=== PATIENT | female | born 1990 | race Caucasian/White ===

== ENCOUNTER 2020-10-26 01:46 | Emergency (ER) | payer SELFPAY ==
[~2020-10-26] VITALS: Ht 165.1 cm; Wt 45.4 kg
--- NOTE | 2020-10-26 02:55 | NUR ---
MD Hernandes in room to do MSE.
[2020-10-26] MEDS ORDERED: HYDROMORPHONE 1 MG/1 ML DISP.SYRIN IM ONE (03:00)
[2020-10-26] MEDS ORDERED: HYDROMORPHONE 1 MG/1 ML DISP.SYRIN ONE (03:08)
--- NOTE | 2020-10-26 03:15 | NUR ---
Patient's right hand secured with colles splint and ovidio bandage per MD Hernandes verbal order.
[2020-10-26] MEDS ORDERED: OXYC-128 PO (03:27)
[2020-10-26] MEDS: LORAZEPAM 2 MG/1 ML VIAL IM ONE ×2 (03:30→03:44)
[2020-10-26] MEDS ORDERED: LORAZEPAM 2 MG/1 ML VIAL ONE (03:47)
[2020-10-26] MEDS ORDERED: OXYCODONE/APAP 5-325 MG TABLET PO ONE (04:45)
[2020-10-26 04:51] VITALS: BP 132/90
[2020-10-26] MEDS ORDERED: OXYCODONE/APAP 5-325 MG TABLET ONE (04:51)
--- NOTE | 2020-10-26 04:52 | NUR ---
Patient discharged to home in stable condition. Written and verbal after care instructions given. Patient verbalizes understanding of instructions. Stressed follow up or return to ER for worsening s/s. Patient ambulates with steady gait, V/S stable, received paper Rx, and ordered a lyft ride to take her home.
== END 2020-10-26 04:53 | disposition home or self-care (01) ==
LOC: ER 02:01
DX: S60.221A Contusion of right hand, initial encounter (principal); W22.8XXA Striking against or struck by other objects, initial encounter; Y93.89 Activity, other specified; Y92.89 Other specified places as the place of occurrence of the external cause; Z88.6 Allergy status to analgesic agent; Z88.5 Allergy status to narcotic agent
CPT/HCPCS: 29125; 73130; 96372 ×2; 99284; J1170; J2060; A4663